=== PATIENT | female | born 1935 | race Caucasian/White ===

== ENCOUNTER 2018-02-18 18:11 | Inpatient (IN) | payer OTHER ==
[~2018-02-18] VITALS: Ht 167.6 cm; Wt 49.9 kg
[~2018-02-18 18:11] MED LIST: DONE5TAB33 PO; GABA-529 PO; SERT20OR6 PO
[2018-02-18] MEDS ORDERED: ASPIRIN 81MG TABLET PO ONE (18:45)
[2018-02-18 19:49] LABS: BASOPHILS % 0.6 % (0.0-2.0); EOSINOPHILS % 0.9 % (0.0-5.0); HEMATOCRIT. 36.3 % (36.0-48.0); HEMOGLOBIN. 12.2 g/dL (12.0-16.0); LYMPHOCYTES % 22.2 % (20.0-50.0); MEAN CORPUSCULAR HEMOGLOBIN 29.8 pg (28.0-32.0); MEAN CORPUSCULAR VOLUME 89.1 fL (81.0-99.0); MEAN PLATELET VOLUME 7.7 fl (7.4-10.4); MONOCYTES % 9.4 % (2.0-8.0); NEUTROPHILS % 66.9 % (40.0-76.0); PLATELET 211 x1000/uL (130-400); RED BLOOD CELL COUNT 4.07 mill/uL (4.2-5.4); RED CELL DISTRIBUTION WIDTH 14.7 % (11.6-14.6)
[2018-02-18 19:59] LABS: D-DIMER 2.43 mg/L FEU (<0.50); PARTIAL THROMBOPLASTIN TIME 26.7 sec (23.4-31.0); PROTHROMBIN TIME 10.9 sec (9.4-11.6)
[2018-02-18 20:06] LABS: CHLORIDE 107 mEq/L (98-107)
[2018-02-18] MEDS ORDERED: IOHEXOL-350 100 ML BOTTLE ONE (22:43)
[2018-02-18] MEDS ORDERED: RISPERIDONE 1MG TABLET PO PRN (23:12)
[2018-02-19 05:24] VITALS: BP 102/40
[2018-02-19] MEDS: LORAZEPAM 2MG/ML CPJ IV PRN ×2 (05:33→14:48)
[2018-02-19] MEDS: GABAPENTIN 100MG CAPSULE PO SCH ×3 (06:15→22:11)
[2018-02-19 08:00] VITALS: BP 137/60
[2018-02-19] MEDS: IPRATROPIUM/ALBUTEROL 0.5-3(2.5)MG/3ML NEB HHN SCH ×4 (08:19→20:00)
[2018-02-19] MEDS ORDERED: ENOXAPARIN 40MG/0.4ML SYR SUBCUT SCH (09:00)
[2018-02-19 11:26] LABS: BG BASE EXCESS -0.7 mmol/L (-2.0-2.0); BG CARBOXYHEMOGLOBIN 0.3 % (0.5-1.5); BG DEOXYHEMOGLOBIN 3.7 % (0.0-5.0); BG FRACTION INSPIRED OXYGEN 21; BG HCO3 ACT 22.9 mmol/L (22.0-26.0); BG METHEMOGLOBIN 0.2 % (0.0-1.5); BG OXYGEN SATURATION 96.3 % (92.0-98.5); BG OXYHEMOGLOBIN 95.8 % (94.0-97.0); BG PCO2 34.7 mmHg (35.0-45.0); BG PH 7.438 (7.350-7.450); BG PO2 83.8 mmHg (75.0-100.0); BG SAMPLE SITE RIGHT RADIAL; BG TOTAL HEMOGLOBIN 12.3 g/dL (12.0-18.0); BG VENT MODE ROOM AIR
[2018-02-19 12:00] VITALS: BP 128/47
[2018-02-19 16:00] VITALS: BP 115/48
[2018-02-19 20:00] VITALS: BP 97/37
[2018-02-19] MEDS ORDERED: SERTRALINE HCL 25MG TABLET PO SCH (21:00)
[2018-02-19] MEDS ORDERED: DONEPEZIL HCL 10MG TABLET PO SCH (21:00)
[2018-02-19] MEDS: ENOXAPARIN 60MG/0.6ML SYR SUBCUT SCH (22:12)
[2018-02-20] VITALS: BP 127/66
[2018-02-20] MEDS: IPRATROPIUM/ALBUTEROL 0.5-3(2.5)MG/3ML NEB HHN SCH ×5 (00:29→15:47)
[2018-02-20 04:00] VITALS: BP 104/56
[2018-02-20] MEDS: GABAPENTIN 100MG CAPSULE PO SCH (05:21)
[2018-02-20 08:00] VITALS: BP 119/62
[2018-02-20] MEDS: ENOXAPARIN 60MG/0.6ML SYR SUBCUT SCH (10:32)
[2018-02-20 12:00] VITALS: BP 92/43
[2018-02-20 15:33] LABS: HEMATOCRIT 34.1 % (36.0-48.0); HEMOGLOBIN 11.7 g/dL (12.0-16.0); MEAN CORPUSCULAR HEMOGLOBIN 30.2 pg (28.0-32.0); MEAN CORPUSCULAR VOLUME 87.7 fL (81.0-99.0); PLATELET 192 x1000/uL (130-400); RED BLOOD CELL COUNT 3.89 mill/uL (4.2-5.4); RED CELL DISTRIBUTION WIDTH 15.2 % (11.6-14.6)
[2018-02-20 15:44] LABS: CHLORIDE 109 mEq/L (98-107)
[2018-02-20 16:00] VITALS: BP 101/46
[2018-02-20 16:56] VITALS: BP 101/46
== END 2018-02-20 18:10 | disposition home or self-care (01) | DRG 291 ==
LOC: ER 18:11 → 7WST 22:41 → EDBEDREQTM 22:46 → EDBEDREQ 22:46 → ENRESERV 02-19 04:18
PROVIDERS: ADMIT Internal Medicine; ATTEND Internal Medicine
DX: I11.0 Hypertensive heart disease with heart failure (principal); I26.99 Other pulmonary embolism without acute cor pulmonale; E43 Unspecified severe protein-calorie malnutrition; G93.40 Encephalopathy, unspecified; D68.59 Other primary thrombophilia; Z68.1 Body mass index [BMI] 19.9 or less, adult; I50.33 Acute on chronic diastolic (congestive) heart failure; D64.9 Anemia, unspecified; F03.90 Unspecified dementia, unspecified severity, without behavioral disturbance, psychotic disturbance, mood disturbance, and anxiety; I27.20 Pulmonary hypertension, unspecified; J44.9 Chronic obstructive pulmonary disease, unspecified; Z91.81 History of falling; Z79.899 Other long term (current) drug therapy
CPT/HCPCS: 36415; 36600; 71045; 71275; 80048; 80053; 82375; 82805; 83880; 84484; 85025; 85027; 85379; 85610; 85730; 86850; 86900; 93005; 93970; 99285; J1650; J2060; J7030; J7620; Q9967